=== PATIENT | male | born 1970 | race Caucasian/White ===

== ENCOUNTER 2019-01-02 02:44 | Emergency (ER) ==
[2019-01-02 02:54] VITALS: BP 109/54; TEMP 98.3; BMI 19.5
--- NOTE | 2019-01-02 03:41 | CT ---
EXAM: CT left ankle without intravenous contrast 01/02/2019. Sagittal and coronal reformatted image s obtained HISTORY: Injury COMPARISON: None FINDINGS: Edematous appearance throughout the subcutaneous tissues of the ankle and visualized foot. There is no organized or drainable fluid collection. The osseous structures appear intact. There is no evidence of acute fracture or dislocation. Bony fragments adjacent to the medial malleolus appear chronic and degenerative. Achilles insertion site intact. IMPRESSION: 1. Circumferential soft tissue swelling within the visualized portion of the ankle and foot. 2. No organized or drainable fluid. 3. No acute fracture 4. Chronic osteoarthritic degenerative change.
[2019-01-02] MEDS ORDERED: MOTRIN PO STA (03:50)
--- NOTE | 2019-01-02 03:53 | ED.PDOC ---
General ED Provider: Dr. PAMELA CARY-ER Chief Complaint: Ankle Pain/Injury Stated Complaint: log rolled onto ankle yesterday Time Seen by Physician: 03:00 Mode of Arrival: Wheelchair Information Source: Patient Exam Limitations: No limitations Nursing and Triage Documentation Reviewed and Agree: Yes Does patient meet sepsis criteria?: No System Inflammatory Response Syndrome: Not Applicable Sepsis Protocol: For patient's 13 years and over: Temp is 96.8 and below OR 101 and greater Pulse >90 BPM Resp >20/minute Acutely Altered Mental Status Are patient's symptoms suggestive of a new infection, such as: -Pneumonia -Skin, Soft Tissue -Endocarditis -UTI -Bone, Joint Infection -Implantable Device -Acute Abdominal Infection -Wound Infection -Meningitis -Blood Stream Catheter Infection -Unknown Musculoskeletal Complaint Exam - Ankle/Foot Complaint/Exam Location of Injury: Reports: Left, Ankle Mechanism of Injury: Reports: Trauma Onset/Duration: 24 hrs Symptoms Are: Reports: Still present Onset of Pain: Reports: Immediate Initial Severity: Mild Current Severity: Mild Location: Reports: Discrete Character: Reports: Dull, Aching Aggravating: Reports: Movement, Weight bearing, Prolonged standing Able to Bear Weight: No Associated Signs and Symptoms: Reports: Swelling Lower Extremity Findings: Present: Swelling, Ecchymosis, Tenderness, Limited range of motion Achilles Tendon Abnormality: No Tenderness: Present: Lateral malleolus Differential Diagnosis: Closed Fracture, Sprain, Strain Review of Systems - Review Of Systems Constitutional: Reports: No symptoms Eyes: Reports: No symptoms Ears, Nose, Mouth, Throat: Reports: No symptoms Respiratory: Reports: No symptoms Cardiac: Reports: No symptoms GI: Reports: No symptoms : Reports: No symptoms Musculoskeletal: Reports: Joint pain, Joint swelling Skin: Reports: No symptoms Neurological: Reports: No symptoms Endocrine: Reports: No symptoms Hematologic/Lymphatic: Reports: No symptoms All Other Systems: Reviewed and Negative Past Medical History - Past Medical History Previously Healthy: Yes Endocrine: Reports: None Cardiovascular: Reports: None Respiratory: Reports: Asthma Hematological: Reports: None Gastrointestinal: Reports: None Genitourinary: Reports: None Neuro/Psych: Reports: None Musculoskeletal: Reports: Unknown Cancer: Reports: None Other Pertinent Past Medical History: Back pain - Surgical History General Surgical History: Reports: Orthopedic (L3-L5 hernia surgery. ) - Family History Family History: Reports: None - Social History Smoking Status: Current every day smoker, Light tobacco smoker Hx Substance Use: No Alcohol Screening: None - Immunizations Tetanus Shot up to Date: Yes Physical Exam - Physical Exam Appearance: Well-appearing, No pain distress, Well-nourished Pain Distress: Mild Eyes: [place], EOMI, Conjunctiva clear ENT: Ears normal, Nose normal, Oropharynx normal Neck: Supple Respiratory: Airway patent, Breath sounds clear, Breath sounds equal, Respirations nonlabored Cardiovascular: RRR GI/: Soft, Nontender, No masses, Bowel sounds normal, No Organomegaly Musculoskeletal: Limited ROM Skin: Warm Neurological: Sensation intact Psychiatric: Affect appropriate, Mood appropriate Interpretation - Radiology Interpretation Radiology Interpretation By: Radiologist Radiology Results: Negative Exam Interpreted: CT Scan Critical Care Note - Critical Care Note Total Time (mins): 0 Course - Course Orders, Labs, Meds: Orders Category Date Time Status CRUTCHES [ED CRUTCHES] .ONCE EMERGENCY 01/02/19 03:50 Active ED KURT WRAP .ONCE EMERGENCY 01/02/19 03:50 Active ED SPLINT APPLICATION .ONCE EMERGENCY 01/02/19 03:50 Active Ibuprofen [Motrin] MEDS 01/02/19 03:50 Discontinued 600 mg PO ONCE STA CT ANKLE LEFT WITHOUT CONTRAST Stat RADS 01/02/19 02:48 Completed Medications Discontinued Medications Generic Name Dose Route Start Last Admin Trade Name Freq PRN Reason Stop Dose Admin Ibuprofen 600 mg 01/02/19 03:50 Motrin PO 01/02/19 03:51 ONCE STA Vital Signs: Temp Pulse Resp BP Pulse Ox 01/02/19 02:48 98.3 F 92 H 20 109/54 L 96 Departure - Departure Time of Disposition: 03:53 Disposition: HOME SELF-CARE Discharge Problem: Ankle pain Instructions: Ankle Sprain (ED) Condition: Good Pt referred to PMD for follow-up: Yes IPMP verified?: No Additional Instructions: stay in splint---elevate--ice---motrin for pain---f/u with pcp Allergies/Adverse Reactions: Allergies No Known Allergies Allergy (Verified 01/02/19 02:58) Home Medications: Ambulatory Orders Aspirin 325 mg PO DIRECTED PRN 01/02/19 Disposition Discussed With: Patient
== END 2019-01-02 04:10 | disposition home or self-care (01) ==
LOC: ED 02:44
DX: M25.572 Pain in left ankle and joints of left foot (principal); F17.210 Nicotine dependence, cigarettes, uncomplicated; W22.8XXA Striking against or struck by other objects, initial encounter
CPT/HCPCS: 99282

== ENCOUNTER 2019-02-21 03:58 | Emergency (ER) ==
[2019-02-21 04:23] VITALS: BP 133/79; TEMP 98.2; BMI 20.4
[2019-02-21] MEDS ORDERED: ALBUTEROL 0.083% NEB NEB STA (04:26)
--- NOTE | 2019-02-21 04:35 | ED.PDOC ---
General ED Provider: Dr. PAMELA CARY-ER Chief Complaint: Shortness of Air Stated Complaint: i have asthma and i am sob --the police took my inhaler--i also bumped my head on something and i have a headache Time Seen by Physician: 04:20 Mode of Arrival: Walk-In Information Source: Patient Exam Limitations: No limitations Nursing and Triage Documentation Reviewed and Agree: Yes Does patient meet sepsis criteria?: No System Inflammatory Response Syndrome: Not Applicable Sepsis Protocol: For patient's 13 years and over: Temp is 96.8 and below OR 101 and greater Pulse >90 BPM Resp >20/minute Acutely Altered Mental Status Are patient's symptoms suggestive of a new infection, such as: -Pneumonia -Skin, Soft Tissue -Endocarditis -UTI -Bone, Joint Infection -Implantable Device -Acute Abdominal Infection -Wound Infection -Meningitis -Blood Stream Catheter Infection -Unknown Respiratory Complaint Exam - Asthma Complaint/Exam Onset/Duration: today Symptoms Are: Still present Timing: Constant Initial Severity: Mild Current Severity: Mild Character: Reports: Wheezing, Non-productive cough Aggravating: Reports: None Alleviating: Reports: Inhalers Associated Signs and Symptoms: Reports: SOA. Denies: Fever, Chest pain, Edema, Calf pain, URI, Sinus infection, Rapid breathing, Labored breathing Current Asthma Medication Usage: Yes Recent Antibiotics: No Respiratory Distress: None Accessory Muscle Use: No Retractions: Not Present Diminished Breath Sounds: No Prolonged Expiratory Phase: No Unable to Speak Full Sentences: No Differential Diagnoses: Acute Asthma Review of Systems - Review Of Systems Constitutional: Reports: No symptoms Eyes: Reports: No symptoms Ears, Nose, Mouth, Throat: Reports: No symptoms Respiratory: Reports: Short of air, Wheezing Cardiac: Reports: No symptoms GI: Reports: No symptoms : Reports: No symptoms Musculoskeletal: Reports: No symptoms Skin: Reports: No symptoms Neurological: Reports: No symptoms Endocrine: Reports: No symptoms Hematologic/Lymphatic: Reports: No symptoms All Other Systems: Reviewed and Negative Past Medical History - Past Medical History Previously Healthy: Yes Endocrine: Reports: None Cardiovascular: Reports: None Respiratory: Reports: Asthma Hematological: Reports: None Gastrointestinal: Reports: None Genitourinary: Reports: None Neuro/Psych: Reports: None Musculoskeletal: Reports: Unknown Cancer: Reports: None Other Pertinent Past Medical History: Back pain - Surgical History General Surgical History: Reports: Orthopedic (L3-L5 hernia surgery. ) - Family History Family History: Reports: None - Social History Smoking Status: Current every day smoker, Light tobacco smoker Hx Substance Use: No Alcohol Screening: None - Immunizations Tetanus Shot up to Date: Yes Physical Exam - Physical Exam Appearance: Well-appearing, No pain distress, Well-nourished Eyes: [place], EOMI, Conjunctiva clear ENT: Ears normal, Nose normal, Oropharynx normal Neck: Supple Respiratory: Airway patent, Breath sounds equal, Respirations nonlabored, Wheezes Cardiovascular: RRR, Pulses normal, No rub, No murmur GI/: Soft Musculoskeletal: Normal strength, ROM intact, No edema, No calf tenderness Skin: Warm, Dry, Normal color Neurological: Sensation intact, Motor intact, Reflexes intact, Cranial nerves intact, Alert, Oriented Psychiatric: Affect appropriate, Mood appropriate Interpretation - Radiology Interpretation Radiology Interpretation By: Radiologist Radiology Results: Negative Exam Interpreted: CT Scan Critical Care Note - Critical Care Note Total Time (mins): 0 Course - Course Orders, Labs, Meds: Orders Category Date Time Status NEBULIZER TREATMENT Stat CARDIO 02/21/19 04:26 Ordered Albuterol Sulfate 0.083% Neb [Albuterol 0.083% Neb] MEDS 02/21/19 04:26 Discontinued 1 vial NEB ONCE STA CT HEAD W/O CONTRAST Stat RADS 02/21/19 04:25 Completed Medications Discontinued Medications Generic Name Dose Route Start Last Admin Trade Name Freq PRN Reason Stop Dose Admin Albuterol Sulfate 1 vial 02/21/19 04:26 Albuterol 0.083% Neb NEB 02/21/19 04:27 ONCE STA Vital Signs: Temp Pulse Resp BP Pulse Ox 02/21/19 04:15 98.2 F 84 22 133/79 97 Departure - Departure Time of Disposition: 05:17 Disposition: HOME SELF-CARE Discharge Problem: Asthma attack Qualifiers: Asthma severity: mild Asthma persistence: intermittent Qualified Code(s): J45.21 - Mild intermittent asthma with (acute) exacerbation Head injury Qualifiers: Encounter type: initial encounter Qualified Code(s): S09.90XA - Unspecified injury of head, initial encounter Instructions: Asthma (ED) Condition: Good Pt referred to PMD for follow-up: Yes IPMP verified?: No Additional Instructions: f/u wtih pcp Allergies/Adverse Reactions: Allergies No Known Allergies Allergy (Verified 02/21/19 04:23) Home Medications: Ambulatory Orders Albuterol Sulfate [Albuterol Sulfate Hfa] 8.5 gm IH Q4HR PRN #1 [id number] 02/21 Albuterol Sulfate [Proair Hfa] 2 puff IH Q4H PRN 02/21/19 Disposition Discussed With: Patient
--- NOTE | 2019-02-21 05:15 | CT ---
EXAM: CT head without contrast. HISTORY: Head injury. PROCEDURE: Contiguous axial CT images of the head without contrast with coronal and sagittal reforma ts. FINDINGS: The ventricles and basal cisterns are normal in size and configuration. No evidence of ma ss or midline shift. No intracranial hemorrhage or evidence of large vessel infarct. No extra-axial fluid collection. The paranasal sinuses and right mastoid air cells are normal in appearance. Ther e is partial opacification of the left mastoid air cells. No skull fracture. Impression: Negative CT of the head. Left mastoiditis.
== END 2019-02-21 05:25 | disposition home or self-care (01) ==
LOC: ED 03:58
DX: J45.21 Mild intermittent asthma with (acute) exacerbation (principal); S09.90XA Unspecified injury of head, initial encounter; W22.8XXA Striking against or struck by other objects, initial encounter; F17.210 Nicotine dependence, cigarettes, uncomplicated
CPT/HCPCS: 94640; 99282